=== PATIENT | female | born 1985 | race Caucasian/White ===

== ENCOUNTER 2020-07-09 17:38 | Emergency (ER) | payer BC, SELFPAY ==
[2020-07-09] MEDS ORDERED: Piperacillin/Tazobactam 4.5 GM VIAL ONE (18:10)
[2020-07-09] MEDS ORDERED: Sodium Chloride 0.9% 100 ML ONE (18:10)
[2020-07-09] MEDS ORDERED: Boostrix 0.5 ML (Tdap) VIAL ONE (18:35)
[2020-07-09] MEDS ORDERED: Ketorolac Tromethamine 30 MG/ML VIAL ONE (18:47)
--- NOTE | 2020-07-09 19:20 | RAD ---
Exam:Left hand 4 views HISTORY: Right COMPARISON: None FINDINGS: Joint spaces are preserved. No fracture, cortical irregularity or periosteal reaction. No s ignificant soft tissue swelling. No radiopaque foreign body. IMPRESSION: No radiographic abnormality
== END 2020-07-09 19:00 | disposition short-term general hospital (02) ==
LOC: BURERS 17:38
DX: S61.452A Open bite of left hand, initial encounter (principal); L03.90 Cellulitis, unspecified; E10.9 Type 1 diabetes mellitus without complications; D64.9 Anemia, unspecified; J45.909 Unspecified asthma, uncomplicated; G40.909 Epilepsy, unspecified, not intractable, without status epilepticus; F17.210 Nicotine dependence, cigarettes, uncomplicated; W55.01XA Bitten by cat, initial encounter
CPT/HCPCS: 90471; 90715; 96374; 96375; J1885; J2543; J3490